=== PATIENT | female | born 2000 | race African-American/Black ===

== ENCOUNTER 2018-03-18 18:02 | Emergency (ER) | payer OTHER ==
[~2018-03-18] VITALS: Ht 165.1 cm; Wt 58.0 kg
[2018-03-18 18:39] VITALS: BP 111/68; PULSE 85; RESP 16; TEMP 99; O2SAT 100
--- NOTE | 2018-03-18 21:38 | PD ---
HPI Chief Complaint: ENT Complaint Time Seen by Provider: 21:03 Travel History International Travel<30 days: No Contact w/Intl Traveler<30days: No Traveled to known affect area: No History of Present Illness HPI 17-year-old female presents for evaluation of sore throat. Symptoms started 3 days ago. Symptoms are mild, aggravated by swallowing, no alleviating factors. Denies fevers, chills, nausea or vomiting, cough or congestion, rash or recent travel. No other complaints at this time. PFSH Past Medical History Medical History: Denies Significant Hx ?: Not Past Surgical History Surgical History: No Previous Surgery Social History Alcohol Use: No Tobacco Use: No Allergies-Medications (Allergen,Severity, Reaction): Coded Allergies: No Known Allergies (Unverified , 03/18/18) Reported Meds & Prescriptions Reported Meds & Active Scripts Active Magic Mouthwash Adult Liq (Multi-Ingredient Mouthwash/Gargle) 120 Ml Susp 10 Ml SWISH-SPIT ACHS Each 5mL contains: Nystatin 200,000units, Diphenhydramine 4.25mg, Viscous Lidocaine 10mg, Yost syrup 0.8 mL Review of Systems General / Constitutional: No: Fever, Chills HENT: Positive: Sore Throat, No: Headaches, Congestion Cardiovascular: No: Chest Pain or Discomfort Respiratory: No: Cough Gastrointestinal: No: Nausea, Vomiting, Abdominal Pain Physical Exam Narrative GENERAL: Well-developed well-nourished female no acute distress SKIN: Warm and dry. HEAD: Atraumatic. Normocephalic. EYES: Pupils equal and round. No scleral icterus. No injection or drainage. ENT: No nasal bleeding or discharge. Mucous membranes pink and moist. Minimal oral pharyngeal erythema without exudate. NECK: Trachea midline. No JVD. No lymphadenopathy. Neck supple full range of motion. CARDIOVASCULAR: Regular rate and rhythm. No murmur appreciated. RESPIRATORY: No accessory muscle use. Clear to auscultation. Breath sounds equal bilaterally. Data Data Last Documented VS Vital Signs Date Time Temp Pulse Resp B/P (MAP) Pulse Ox O2 Delivery O2 Flow Rate FiO2 03/18/18 18:39 99.0 85 16 111/68 (82) 100 Orders Orders Group A Rapid Strep Screen (03/18/18 21:25) Strep Culture (Group A) (03/18/18 21:30) Ed Discharge Order (03/18/18 22:19) [facility] Medical Decision Making Medical Screen Exam Complete: Yes Emergency Medical Condition: Yes Medical Record Reviewed: Yes Differential Diagnosis Pharyngitis, tonsillitis, peritonsillar abscess, infectious mononucleosis, herpangina Narrative Course Physical examination is reassuring. Rapid strep screen was performed and is negative. She appears to have a viral pharyngitis. She is stable for discharge. Diagnosis Primary Impression: Pharyngitis Additional Instructions: Medication as needed. Take Tylenol Motrin as needed for pain per dosing instructions on the bottle. Stay well hydrated. Return for any emergent medical conditions. Med/Other Pt SpecificInfo: Prescription(s) given Scripts [id number]-Skwunzatgstxjhq-Ldpryhobx Liq (Magic Mouthwash Adult Liq) 120 Ml Susp 10 ML SWISH-SPIT ACHS for Mouth sores, #120 ML 0 Refills Each 5mL contains: Nystatin 200,000units, Diphenhydramine 4.25mg, Viscous Lidocaine 10mg, Yost syrup 0.8 mL Prov: Myles Church MD 03/18/18 Disposition: 01 DISCHARGE HOME Condition: Stable Sunil Ernst March 18, 2018 21:38
[2018-03-18] MEDS ORDERED: MAGICADU2 SWISH-SPIT (22:14)
== END 2018-03-18 22:31 | disposition home or self-care (01) ==
LOC: NEPD 18:02
DX: J02.9 Acute pharyngitis, unspecified (principal)
CPT/HCPCS: 87081; 87880; 99283